=== PATIENT | female | born 1965 | race Caucasian/White ===

== ENCOUNTER 2025-05-19 10:33 | Emergency (ER) | payer BC | END 2025-05-19 12:00 | disposition home or self-care (01) | LOC: FB.ED 10:33 | DX: S62.637A Displaced fracture of distal phalanx of left little finger, initial encounter for closed fracture (principal); Z79.899 Other long term (current) drug therapy; W26.8XXA Contact with other sharp object(s), not elsewhere classified, initial encounter; Y93.89 Activity, other specified | CPT/HCPCS: 12001; 73140-26-F4; 73140-F4; 99283; J2003 ==